=== PATIENT | male | born 1995 | race Caucasian/White ===

== ENCOUNTER 2017-09-28 20:17 | Emergency (ER) | payer MEDICAID ==
[~2017-09-28] VITALS: Ht 182.9 cm; Wt 105.2 kg
[2017-09-28 20:21] VITALS: BP 139/100
--- NOTE | 2017-09-28 20:24 | ER Report ---
History and Physical Time Seen By MD: 20:18 HPI/ROS CHIEF COMPLAINT: Ear infection HISTORY OF PRESENT ILLNESS: 22-year-old male with history of L5 antitrypsin deficiency presents ambulatory to the ER complaining of illness for 2-1/2 weeks. Patient notes it started out as a head cold and then traveled into his chest. It is now maintains that he has had severe right ear pressure for the last several days. He's been taking [id number] medications without improvement. Patient notes no leakage of fluid from his ear. He's had sinus congestion and significant green drainage. He states that his whole family was ill probably 4-5 weeks ago with what sounds like influenza. However, they were never diagnosed. Patient took his temperature at home and noted 100.5. He states he took it thousand milligrams of ibuprofen. I cautioned him not to exceed 800 mg 3 times daily. He was also advised to take it with food. Allergies: Coded Allergies: amoxicillin (Verified Allergy, Mild, rash, 09/28/17) Home Meds Active Scripts Cefuroxime Axetil (CEFUROXIME) 500 Mg Tablet, 500 MG PO BID for infection, #14 TAB Prov:KESHAVJOSAFATDominik Navarro DO 09/28/17 Reviewed Nurses Notes: Yes Old Medical Records Reviewed: Yes Constitutional Vital Sign - Last 24 Hours 09/28/17 20:21 Temp 100.4 Pulse 122 Resp 14 B/P (MAP) 139/100 Pulse Ox 96 O2 Delivery Room Air Physical Exam General Appearance: The patient is alert, has no immediate need for airway protection and no current signs of toxicity. Vital signs stable, fever 100.4, pulse ox normal HEENT: Pupils equal and round no injection. TMs: The right tympanic membranes is grossly erythematous and bulging. There appears cloudy fluid behind the TM. The left TM appears normal with some fluid behind it, not erythematous or injected, oropharynx with moderate erythema, there is tonsillar hypertrophy without exudate or petechiae Respiratory: Chest is non tender, lungs are clear to auscultation. No wheezing or rails Cardiac: regular rate and rhythm Gastrointestinal: Abdomen is soft and non tender, no masses, bowel sounds normal. Musculoskeletal: Neck: Neck is supple and non tender., Tender lymphadenopathy Extremities have full range of motion and are non tender. Skin: No rashes or lesions. DIFFERENTIAL DIAGNOSIS: After history and physical exam differential diagnosis was considered for otitis media,, sinusitis, eustachian tube dysfunction, strep pharyngitis, influenza, bronchitis, pneumonia Medical Decision Making Data Points Laboratory Hematology Test 09/28/17 20:27 Influenza Virus Type A (PCR) Negative (NEGATIVE) Influenza Virus Type B (PCR) Negative (NEGATIVE) Group A Streptococcus Screen Negative (NEGATIVE) Chemistry Test 09/28/17 20:27 Influenza Virus Type A (PCR) Negative (NEGATIVE) Influenza Virus Type B (PCR) Negative (NEGATIVE) Group A Streptococcus Screen Negative (NEGATIVE) ED Course/Re-evaluation ED Course Patient was admitted to an examination room. H&P was done. The differential diagnoses was considered. On clinical examination. Patient has obvious otitis media. The right tympanic membrane. He has sinus congestion. Likely sinusitis and he also has chest congestion with productive cough of colored sputum. Rapid strep and rapid influenza were negative. Patient will be treated with Ceftin 500 mg by mouth twice a day. He is advised to continue symptomatically treatment. He is advised to take ibuprofen 800 mg 3 times daily and Mucinex D as well as Nasonex to decongest his sinus passages. Patient advised to follow-up with primary care if unimproved in 3-5 days Decision to Disposition Date: Sep 28, 2017 Decision to Disposition Time: 20:34 Depart Departure Latest Vital Signs Vital Signs Date Time Temp Pulse Resp B/P (MAP) Pulse Ox O2 Delivery O2 Flow Rate FiO2 09/28/17 20:21 100.4 122 14 139/100 96 Room Air Impression: Primary Impression: Right otitis media Condition: Improved Disposition: HOME OR SELF-CARE Referrals: MARIAJOSE BARTLETT MD New Scripts Cefuroxime Axetil (CEFUROXIME) 500 Mg Tablet 500 MG PO BID for infection, #14 TAB Prov: JUANPABLO PARR DO 09/28/17 Patient Instructions: Otitis Media (ED) Additional Instructions: Take ibuprofen 800 mg 3 times daily with food Take Mucinex D to decongest your eustachian tubes and allow the fluid to drain out Use Nasonex cortisone spray for the nasal passages Follow-up with primary care if unimproved in 3-5 days Problem Qualifiers Primary Impression: Right otitis media Otitis media type: suppurative Chronicity: acute Recurrence: not specified as recurrent Spontaneous tympanic membrane rupture: without spontaneous rupture Qualified Codes: H66.001 - Acute suppurative otitis media without spontaneous rupture of ear drum, right ear JUANPABLO PARR DO Sep 28, 2017 20:24
[2017-09-28] MEDS ORDERED: CEFU500T10 PO (20:37)
[2017-09-28] MEDS ORDERED: CEFDINIR 300 MG CAP PO ONE ×2 (20:40)
== END 2017-09-28 20:45 | disposition home or self-care (01) ==
LOC: ER 20:27
DX: H66.001 Acute suppurative otitis media without spontaneous rupture of ear drum, right ear (principal)
CPT/HCPCS: 87081; 87502; 87880; 99283

== ENCOUNTER 2017-10-03 20:26 | Emergency (ER) | payer MEDICAID ==
[~2017-10-03 20:26] MED LIST: CEFU500T10 PO
[2017-10-03 20:36] VITALS: BP 131/94
[2017-10-03] MEDS ORDERED: CODE118S5 PO (20:39)
[2017-10-03] MEDS ORDERED: PRED20TA6 PO (20:39)
[2017-10-03] MEDS ORDERED: predniSONE 20 MG TAB PO ONE (20:40)
[2017-10-03] MEDS ORDERED: PROMETH/COD SYRP 6.25-10MG/5ML PO ONE (20:40)
--- NOTE | 2017-10-03 20:40 | ER Report ---
History and Physical Time Seen By MD: 20:31 HPI/ROS CHIEF COMPLAINT: Persistent cough HISTORY OF PRESENT ILLNESS: 22-year-old seen here approximately 5 days ago, diagnosed with otitis media, sinus infection, upper respiratory infection. He was placed on Ceftin 500 mg by mouth twice a day. He was advised symptomatically treatment [id number]. He's gotten better but his cough continues to persist. He's having acid reflux symptoms and postnasal drip coughing so hard that he's gagged and vomited approximately 20 times in the last 48 hours. Patient denies history of asthma REVIEW OF SYSTEMS: Respiratory: As above Cardiovascular: No chest pain, no palpitations. Gastrointestinal: As above Musculoskeletal: No back pain. Allergies: Coded Allergies: amoxicillin (Verified Allergy, Mild, rash, 09/28/17) Home Meds Active Scripts Prednisone (PREDNISONE) 20 Mg Tablet, 20 MG PO QDAY for reduce lung inflammation , #5 Prov:JUANPABLO PARR 10/03/17 Promethazine HCl/Codeine (Promethazine-Codeine Syrup) 6.25 Mg-10 Mg/5 Ml Syrup, 5-10 ML PO Q4H Y for cough suppression, #120 Prov:JUANPABLO PARR Ramon MICHELLE 10/03/17 Cefuroxime Axetil (CEFUROXIME) 500 Mg Tablet, 500 MG PO BID for infection, #14 TAB Prov:JUANPABLO PARR 09/28/17 Reviewed Nurses Notes: Yes Old Medical Records Reviewed: Yes Hx Substance Use Disorder: No Hx Alcohol Use: No Constitutional Vital Sign - Last 24 Hours 10/03/17 20:36 Temp 98.0 Pulse 98 Resp 19 B/P (MAP) 131/94 Pulse Ox 96 O2 Delivery Room Air Physical Exam General Appearance: The patient is alert, has no immediate need for airway protection and no current signs of toxicity. Vital signs stable, afebrile, pulse ox normal HEENT: Pupils equal and round no injection. TMs normal appearing, oropharynx with mild erythema, postnasal drip noted, Respiratory: Chest is non tender, lungs are clear to auscultation. No wheezing Cardiac: regular rate and rhythm Gastrointestinal: Abdomen is soft and non tender, no masses, bowel sounds normal. Musculoskeletal: Neck: Neck is supple and non tender. Extremities have full range of motion and are non tender. Skin: No rashes or lesions. DIFFERENTIAL DIAGNOSIS: After history and physical exam differential diagnosis was considered for postnasal drip, sinusitis, reactive airways disease, acid reflux, residual pneumonia, residual bronchitis, spasmodic cough reflex Medical Decision Making ED Course/Re-evaluation ED Course Patient was admitted to an examination room. H&P was done. The differential diagnoses was considered. On clinical examination. Patient has repetitive cough, persistent causing gagging and vomiting. Patient we treated with prednisone and Phenergan and codeine. Patient advised to follow-up with primary care if unimproved in 3-5 days. Decision to Disposition Date: Oct 03, 2017 Decision to Disposition Time: 20:36 Depart Departure Latest Vital Signs Vital Signs Date Time Temp Pulse Resp B/P (MAP) Pulse Ox O2 Delivery O2 Flow Rate FiO2 10/03/17 20:36 98.0 98 19 131/94 96 Room Air Impression: Primary Impression: Persistent cough Additional Impression: Otitis media follow-up, infection resolved Condition: Improved Disposition: HOME OR SELF-CARE New Scripts Prednisone (PREDNISONE) 20 Mg Tablet 20 MG PO QDAY for reduce lung inflammation, #5 Prov: JUANPABLO PARR DO 10/03/17 Promethazine HCl/Codeine (Promethazine-Codeine Syrup) 6.25 Mg-10 Mg/5 Ml Syrup 5-10 ML PO Q4H Y for cough suppression, #120 Prov: JUANPABLO PARR DO 10/03/17 Patient Instructions: Acute Cough (ED) Additional Instructions: Follow-up with primary care 3-5 days if unimproved Problem Qualifiers JUANPABLO PARR DO Oct 03, 2017 20:40
== END 2017-10-03 20:51 | disposition home or self-care (01) ==
LOC: ER 20:30
DX: R05 Cough (principal)
CPT/HCPCS: 99281